=== PATIENT | female | born 1990 | race Caucasian/White ===

== ENCOUNTER 2016-12-05 14:14 | Emergency (ER) | payer MEDICARE ==
[2016-12-05 19:14] LABS: RED BLOOD COUNT 3.61 M/UL (4.00-5.10); WHITE BLOOD COUNT 13.1 K/UL (4.5-11.0)
[2016-12-05 19:41] LABS: BUN/CREATININE RATIO 10 (0-10)
== END 2016-12-05 20:46 | disposition home or self-care (01) ==
LOC: ER1 14:14
PROVIDERS: Emergency Medicine
DX: O99.89 Other specified diseases and conditions complicating pregnancy, childbirth and the puerperium (principal); R07.9 Chest pain, unspecified; R51 Headache; R29.810 Facial weakness; O99.332 Smoking (tobacco) complicating pregnancy, second trimester; F17.200 Nicotine dependence, unspecified, uncomplicated
CPT/HCPCS: ECHO; 36415; 70544; 70551; 71010; 80053; 81001; 82550; 82553; 83874; 84484; 85025; 85610; 85730; 93005; 93306; 99291

== ENCOUNTER 2016-12-10 20:46 | Emergency (ER) | payer MEDICARE ==
[2016-12-10 23:31] LABS: HEMOGLOBIN 11.6 gm/dl (12.3-15.3); RED BLOOD COUNT 3.78 M/UL (4.00-5.10); WHITE BLOOD COUNT 17.6 K/UL (4.5-11.0)
[2016-12-10 23:45] LABS: BUN/CREATININE RATIO 18 (0-10)
== END 2016-12-11 02:55 | disposition home or self-care (01) ==
LOC: ER1 20:46 → GENOP 20:46 → ER1 20:46 → EDSTATUS 20:57 → ER1 12-11 02:55
PROVIDERS: Emergency Medicine
DX: O99.89 Other specified diseases and conditions complicating pregnancy, childbirth and the puerperium (principal); R07.2 Precordial pain; R07.89 Other chest pain; R06.02 Shortness of breath; Z3A.27 27 weeks gestation of pregnancy
CPT/HCPCS: 36415; 80053; 83880; 84484; 85025; 99284

== ENCOUNTER 2017-01-12 21:46 | Outpatient (CLI) | payer MEDICARE | END 2017-01-13 02:03 | disposition home or self-care (01) | LOC: GENOP 21:46 | PROVIDERS: Obstetrics & Gynecology | DX: O42.913 Preterm premature rupture of membranes, unspecified as to length of time between rupture and onset of labor, third trimester (principal); Z3A.32 32 weeks gestation of pregnancy | CPT/HCPCS: 80307; 81001; 82731; 83518; G0463 ==

== ENCOUNTER 2017-01-19 01:00 | Outpatient (CLI) | payer MEDICARE | END 2017-01-19 03:27 | disposition home or self-care (01) | LOC: GENOP 01:00 | DX: O99.89 Other specified diseases and conditions complicating pregnancy, childbirth and the puerperium (principal); R10.9 Unspecified abdominal pain; Z3A.31 31 weeks gestation of pregnancy | CPT/HCPCS: G0463 ==

== ENCOUNTER 2017-02-25 21:28 | Observation (INO) | payer MEDICARE | END 2017-02-26 08:05 | disposition home or self-care (01) | LOC: GENOP 21:28 → OB 23:30 | PROVIDERS: ADMIT Obstetrics & Gynecology | DX: O60.03 Preterm labor without delivery, third trimester (principal); O99.89 Other specified diseases and conditions complicating pregnancy, childbirth and the puerperium; R10.30 Lower abdominal pain, unspecified; O99.333 Smoking (tobacco) complicating pregnancy, third trimester; F17.210 Nicotine dependence, cigarettes, uncomplicated | CPT/HCPCS: 59025; 80307; 81001; G0378 ==

== ENCOUNTER 2021-01-01 10:58 | Emergency (ER) | payer OTHER ==
[~2021-01-01 10:58] MED LIST: COLACE 100MG C100 MG PO; FERROUS SULFAT325 M2 PO; IBUPROFEN600 MG PO; PRENATAL VITAM1 EAC6 PO; SUBOXONE 8 MG-1 EACH SL
[2021-01-01 13:57] LABS: HEMOGLOBIN 11.3 gm/dl (12.3-15.3); RED BLOOD COUNT 4.05 M/UL (4.00-5.10); WHITE BLOOD COUNT 11.2 K/UL (4.5-11.0)
== END 2021-01-01 17:41 | disposition home or self-care (01) ==
LOC: ER1 10:58
PROVIDERS: Physician Assistant
DX: O44.01 Complete placenta previa NOS or without hemorrhage, first trimester (principal); Z79.899 Other long term (current) drug therapy; O99.331 Smoking (tobacco) complicating pregnancy, first trimester; F17.210 Nicotine dependence, cigarettes, uncomplicated; Z3A.01 Less than 8 weeks gestation of pregnancy
CPT/HCPCS: 76815; 81001; 84702; 84703; 85025; 86850; 86900; 86901; 99284

== ENCOUNTER 2021-12-04 20:46 | Emergency (ER) | payer OTHER ==
[2021-12-04 22:56] LABS: HEMOGLOBIN 9.8 gm/dl (12.3-15.3); RED BLOOD COUNT 4.3 M/UL (4.00-5.10); WHITE BLOOD COUNT 6.5 K/UL (4.5-11.0)
[2021-12-04 23:03] LABS: BUN/CREATININE RATIO 17 (0-10)
== END 2021-12-05 03:00 | disposition home or self-care (01) ==
LOC: ER1 20:46
PROVIDERS: Student in an Organized Health Care Education/Training Program
DX: R07.9 Chest pain, unspecified (principal); R00.2 Palpitations; F17.290 Nicotine dependence, other tobacco product, uncomplicated
CPT/HCPCS: 71045; 80053; 82550; 82553; 84439; 84443; 84484; 85025; 85379; 85610; 85730; 93005; 99285